=== PATIENT | male | born 1955 | race Caucasian/White ===

== ENCOUNTER 2024-01-15 10:00 | Inpatient (IN) | payer MEDICARE ==
[2024-01-15 09:31] VITALS: BMI 23.7
[2024-01-18] MEDS ORDERED: Vancomycin 1 GM VIAL ONE (06:09)
[2024-01-18] MEDS ORDERED: Thrombin 5000 UNITS/5 ML VIAL ONE (06:10)
[2024-01-18] MEDS ORDERED: Ondansetron PF 4 MG/2 ML Vial ONE ×2 (06:38→11:54)
[2024-01-18] MEDS ORDERED: Dexamethasone 20 MG/5 ML VIAL ONE (06:38)
[2024-01-18] MEDS ORDERED: Rocuronium Bromide 10 MG/ML (10ML VIAL) ONE ×3 (06:38→09:25)
[2024-01-18] MEDS ORDERED: Lidocaine 1% PF 5 ML VIAL ONE (06:38)
[2024-01-18] MEDS ORDERED: fentaNYL 50 mcg/mL 1 mL Vial ONE (06:39)
[2024-01-18] MEDS ORDERED: PROPOFOL 20 ML ONE (06:39)
[2024-01-18] MEDS ORDERED: HYDROmorphone 2 MG/ML VIAL ONE (06:39)
[2024-01-18] MEDS ORDERED: Glycopyrrolate 0.2 MG/ML 5 ML SYRINGE ONE (06:42)
[2024-01-18] MEDS ORDERED: PHENYLEPHRINE-NS 100 MCG/ML 10 ML SYRINGE ONE (06:42)
[2024-01-18] MEDS ORDERED: Mag-Al 1200 mg/1200 mg/30 ML UDCUP PO PRN (06:46)
[2024-01-18] MEDS ORDERED: diphenhydrAMINE 50 MG/ML VIAL IVP PRN (06:46)
[2024-01-18] MEDS ORDERED: Ondansetron PF 4 MG/2 ML Vial IVP PRN (06:46)
[2024-01-18] MEDS ORDERED: Milk Of Magnesia 30 ML UDCUP PO PRN (06:46)
[2024-01-18] MEDS ORDERED: HYDROcodone/Acetaminophen 7.5/325 mg Tablet PO PRN (06:46)
[2024-01-18] MEDS ORDERED: Acetaminophen/Codeine 30-300mg Tablet PO PRN (06:46)
[2024-01-18] MEDS ORDERED: Morphine 2 MG/ML VIAL SLOW IVP PRN (06:46)
[2024-01-18] MEDS ORDERED: CEFAZOLIN 2 GM VIAL ONE (06:48)
[2024-01-18] MEDS ORDERED: Lidocaine 1% MPF 2 ML VIAL ONE (06:55)
[2024-01-18] MEDS ORDERED: ePHEDrine Sulfate 50 MG/10 ML VIAL ONE (07:26)
[2024-01-18] MEDS: Amlodipine 5 MG TAB PO SCH ×2 (09:00→14:05)
[2024-01-18] MEDS: Lisinopril 20 MG TAB PO SCH (09:00)
[2024-01-18] MEDS: Methenamine Hippurate 1 GM TAB PO SCH (09:00)
[2024-01-18] MEDS: Baclofen 10 MG TAB PO SCH (09:00)
[2024-01-18] MEDS ORDERED: SUGAMMADEX SODIUM 200 MG/2 ML VIAL ONE (11:54)
[2024-01-18] MEDS: Escitalopram Oxalate 10 mg Tablet PO SCH (14:05)
[2024-01-18] MEDS: Rosuvastatin 10 MG TAB PO SCH (14:05)
[2024-01-18] MEDS: Lisinopril 10 MG TAB PO SCH (14:05)
[2024-01-18] MEDS: Sodium Chloride 0.9% 1,000 ML IV SCH (14:10)
[2024-01-18] MEDS ORDERED: Dextrose 50% Abboject 50 ML SYRINGE SLOW IVP PRN (14:50)
[2024-01-18] MEDS ORDERED: Glucagon 1 MG/ML KIT IM PRN (14:50)
[2024-01-18] MEDS ORDERED: Dextrose 5% in Water 1,000 ML IV PRN (14:50)
[2024-01-18] MEDS: CEFAZOLIN 2 GM in Sodium Chloride 0.9% 100 ML IVPB SCH (15:29)
[2024-01-18] MEDS: Insulin Glargine 30 UNITS/0.3 ML VIAL SC SCH (15:29)
[2024-01-18] MEDS: Insulin Lispro 100 UNIT/ML 10 ML VIAL SC PRN (15:29)
[2024-01-18] MEDS: HYDROcodone/Acetaminophen 10/325 mg Tablet PO PRN (17:18)
[2024-01-18] MEDS: Labetalol HCl 100 MG TAB PO SCH (18:19)
[2024-01-19 07:53] VITALS: TEMP 98.4
[2024-01-19] MEDS: Insulin Glargine 30 UNITS/0.3 ML VIAL SC SCH (08:55)
[2024-01-19 11:24] VITALS: BP 189/74
== END 2024-01-19 11:58 | disposition home or self-care (01) | DRG 472 ==
LOC: SURG A 01-18 05:56 → SURG B 01-18 13:16
PROVIDERS: ADMIT Neurological Surgery; ATTEND Neurological Surgery
PROC: 0RG20A0 Fusion of 2 or more Cervical Vertebral Joints with Interbody Fusion Device, Anterior Approach, Anterior Column, Open Approach (ICD-10-PCS; principal; 2024-01-18)
DX: M48.02 Spinal stenosis, cervical region (principal); M47.12 Other spondylosis with myelopathy, cervical region; E11.9 Type 2 diabetes mellitus without complications; I10 Essential (primary) hypertension; E78.00 Pure hypercholesterolemia, unspecified; Z79.4 Long term (current) use of insulin; Z79.84 Long term (current) use of oral hypoglycemic drugs; Z79.899 Other long term (current) drug therapy; Z79.1 Long term (current) use of non-steroidal anti-inflammatories (NSAID)
CPT/HCPCS: 36415; 36416; 82565; A4314; C1713; J1100; J1815; J2405; J2704; J3010; J3370